=== PATIENT | male | born 1940 | race Hispanic/Latino ===

== ENCOUNTER → 2018-04-24 | Outpatient (CLI) | payer OTHER ==
[~2018-04-24] MED LIST: CLOP75TA14 PO; GLIM2TAB3 PO; LISI10TA7 PO; METF-444 PO; METO25TA6 PO; PRAV10TA39 PO; PRAV20TA4 PO
== END | disposition home or self-care (01) ==
LOC: SHCH 11:05
PROVIDERS: ATTEND Internal Medicine Cardiovascular Disease
DX: I65.23 Occlusion and stenosis of bilateral carotid arteries (principal); I25.810 Atherosclerosis of coronary artery bypass graft(s) without angina pectoris
CPT/HCPCS: 93880

== ENCOUNTER → 2018-05-15 | Outpatient (CLI) | payer OTHER | END | disposition home or self-care (01) | LOC: RAH 12:22 | PROVIDERS: ATTEND Family Medicine | DX: L03.115 Cellulitis of right lower limb (principal); M17.0 Bilateral primary osteoarthritis of knee | CPT/HCPCS: 93922 ==

== ENCOUNTER → 2018-05-16 | Outpatient (CLI) | payer OTHER ==
[~2018-05-16] MED LIST changes: +IOHEXOL-350 50ML VIAL IV ONE
== END | disposition home or self-care (01) ==
LOC: OIH 08:27
PROVIDERS: ATTEND Internal Medicine Cardiovascular Disease
DX: I65.23 Occlusion and stenosis of bilateral carotid arteries (principal); Z95.828 Presence of other vascular implants and grafts
CPT/HCPCS: 70498; Q9967

== ENCOUNTER 2019-01-18 15:10 | Emergency (ER) | payer OTHER ==
[~2019-01-18 15:10] MED LIST changes: -IOHEXOL-350 50ML VIAL IV ONE
[2019-01-18 16:00] LABS: BASOPHILS % (AUTO) 0.4 % (0.0-5.0); EOSINOPHILS % (AUTO) 1.3 % (0.0-8.0); HEMATOCRIT 36.6 % (42-54); LYMPHOCYTES % (AUTO) 18.6 % (21.0-51.0); MEAN CORPUSCULAR HEMOGLOBIN 32.2 pg (27.0-33.0); MEAN CORPUSCULAR VOLUME 94.6 fL (79-99); MONOCYTES % (AUTO) 6.4 % (3.0-13.0); NEUTROPHILS % (AUTO) 73.3 % (40.0-77.0); NUCLEATED RED BLOOD CELLS 0.1 % (0.0-0.19); PLATELET COUNT (AUTO) 246 K/uL (130-400); RED BLOOD CELL COUNT(AUTO) 3.87 MIL/uL (4.50-6.20); RED CELL DISTRIBUTION WIDTH 14.3 % (11.0-15.5); WHITE BLOOD COUNT (AUTO) 8.4 K/uL (4.8-10.8)
[2019-01-18 16:12] LABS: CREATININE 1.3 mg/dL (0.5-1.5); POTASSIUM 4.2 mmol/L (3.5-5.1)
[2019-01-18 16:14] LABS: INR 0.94 (0.85-1.15); PROTHROMBIN TIME 9.9 SEC (9.6-11.6)
[2019-01-18 16:16] LABS: BILIRUBIN,TOTAL 0.3 mg/dL (0.2-1.0)
== END 2019-01-18 16:51 | disposition home or self-care (01) ==
LOC: EDH 15:10
DX: K64.8 Other hemorrhoids (principal); K62.5 Hemorrhage of anus and rectum; I10 Essential (primary) hypertension; E11.9 Type 2 diabetes mellitus without complications; Z88.0 Allergy status to penicillin; Z88.6 Allergy status to analgesic agent; Z98.890 Other specified postprocedural states; Z87.891 Personal history of nicotine dependence
CPT/HCPCS: 36415; 80053; 83690; 85025; 85610; 85730

== ENCOUNTER 2019-02-06 05:28 | Day surgery (SDC) | payer OTHER ==
[~2019-02-06 05:28] MED LIST changes: +ASPI-555 PO; +CHOL200074 PO; +FEXO180T94 PO; +FOLI400T9 PO; -LISI10TA7 PO; +METH2.5T6 PO; +MULT-1203 PO
[2019-02-06] MEDS ORDERED: SODIUM CHLORIDE 0.9% 1000ML 1,000 ML IV ONE (05:47)
[2019-02-06 06:05] VITALS: BP 118/54
[2019-02-06] MEDS ORDERED: LIDOCAINE HCL-MPF 2% 5ML VIAL ONE (06:40)
[2019-02-06] MEDS ORDERED: PROPOFOL 10 MG/ML 20ML VIAL IV ONE (06:40)
[2019-02-06 06:51] VITALS: BP 115/62
[2019-02-06 06:56] VITALS: BP 127/63
[2019-02-06 07:01] VITALS: BP 119/55
[2019-02-06 07:06] VITALS: BP 141/75
[2019-02-06 07:15] VITALS: BP 130/67
== END 2019-02-06 07:28 | disposition home or self-care (01) ==
LOC: DAH 05:28 → ENDO 05:28
PROVIDERS: ATTEND Internal Medicine
DX: K63.5 Polyp of colon (principal); K57.30 Diverticulosis of large intestine without perforation or abscess without bleeding; K64.2 Third degree hemorrhoids; I25.10 Atherosclerotic heart disease of native coronary artery without angina pectoris; K62.5 Hemorrhage of anus and rectum; I50.9 Heart failure, unspecified; I11.0 Hypertensive heart disease with heart failure; E11.9 Type 2 diabetes mellitus without complications; E78.2 Mixed hyperlipidemia; Z79.84 Long term (current) use of oral hypoglycemic drugs; Z79.82 Long term (current) use of aspirin; Z79.899 Other long term (current) drug therapy; M19.90 Unspecified osteoarthritis, unspecified site; Z98.890 Other specified postprocedural states; Z95.1 Presence of aortocoronary bypass graft
CPT/HCPCS: 45380; 82948 ×2; 88305; A4606; J2704; J3490; J7030

== ENCOUNTER → 2019-04-17 | Outpatient (CLI) | payer OTHER ==
[~2019-04-17] MED LIST changes: -GLIM2TAB3 PO; +GLIM2TAB4 PO
== END | disposition home or self-care (01) ==
LOC: SHCH 09:27
PROVIDERS: ATTEND Internal Medicine Cardiovascular Disease
DX: I65.23 Occlusion and stenosis of bilateral carotid arteries (principal)
CPT/HCPCS: 93880

== ENCOUNTER → 2020-05-27 | Outpatient (CLI) | payer OTHER ==
[~2020-05-27] MED LIST changes: -ASPI-555 PO; +ASPI-556 PO; +GLIM2TAB30 PO; -GLIM2TAB4 PO
== END | disposition home or self-care (01) ==
LOC: SHCH 07:47
PROVIDERS: ATTEND Internal Medicine Cardiovascular Disease
DX: I10 Essential (primary) hypertension (principal)
CPT/HCPCS: 93306; 93356

== ENCOUNTER → 2020-06-04 | Outpatient (CLI) | payer OTHER | END | disposition home or self-care (01) | LOC: SHCH 14:49 | PROVIDERS: ATTEND Internal Medicine Cardiovascular Disease | DX: I70.293 Other atherosclerosis of native arteries of extremities, bilateral legs (principal) | CPT/HCPCS: 93925 ==

== ENCOUNTER → 2020-06-24 | Outpatient (CLI) | payer OTHER | END | disposition home or self-care (01) | LOC: RAH 14:48 | PROVIDERS: ATTEND Family Medicine | DX: R22.42 Localized swelling, mass and lump, left lower limb (principal) | CPT/HCPCS: 76882 ==

== ENCOUNTER 2021-04-28 11:15 | Inpatient (IN) | payer MEDICARE, OTHER ==
[~2021-04-28] VITALS: Ht 170.2 cm; Wt 87.4 kg
[2021-04-28 11:44] LABS: BASOPHILS % (AUTO) 0.7 % (0.0-5.0); HEMATOCRIT 33.3 % (42-54); LYMPHOCYTES % (AUTO) 8.1 % (21.0-51.0); MEAN CORPUSCULAR HEMOGLOBIN 31.4 pg (27.0-33.0); MEAN CORPUSCULAR VOLUME 95.1 fL (79-99); MONOCYTES % (AUTO) 8.9 % (3.0-13.0); NEUTROPHILS % (AUTO) 80.5 % (40.0-77.0); PLATELET COUNT (AUTO) 365 K/uL (130-400); RED CELL DISTRIBUTION WIDTH 12.8 % (11.0-15.5); WHITE BLOOD COUNT (AUTO) 8.9 K/uL (4.8-10.8)
[2021-04-28 11:59] LABS: CREATININE 1.4 mg/dL (0.5-1.5); POTASSIUM 4.6 mmol/L (3.5-5.1)
[2021-04-28 12:04] LABS: ALBUMIN 3.2 g/dL (3.5-5.0); BILIRUBIN,TOTAL 0.6 mg/dL (0.2-1.0); TOTAL PROTEIN, SERUM 7.8 g/dL (6.0-8.3)
[2021-04-28] MEDS ORDERED: IOHEXOL 350 MG/ML 100ML INFUS..BTL IV ONE (14:42)
[2021-04-28] MEDS ORDERED: GLUCAGON 1MG KIT 1 MG ML IM PRN (17:30)
[2021-04-28] MEDS ORDERED: HYDRALAZINE 20MG/ML VIAL IM PRN (17:30)
[2021-04-28] MEDS ORDERED: ACETAMINOPHEN 325 MG TAB PO PRN (17:30)
[2021-04-28] MEDS ORDERED: DEXTROSE 50%-WATER 50 ML DISP.SYRIN IV PRN (17:30)
[2021-04-28] MEDS ORDERED: ONDANSETRON 4MG INJ IVP PRN (17:30)
[2021-04-28] MEDS ORDERED: FUROSEMIDE 40MG VIAL IV ONE (17:30)
[2021-04-28] MEDS ORDERED: LORAZEPAM 2 MG/ML 1 ML VIAL IVP PRN (18:00)
[2021-04-28] MEDS: HEPARIN 5,000 UNIT VIAL SQ SCH (18:20)
[2021-04-28] MEDS: FAMOTIDINE 20MG TAB PO SCH (18:20)
[2021-04-28] MEDS: THIAMINE HCL 100 MG/ML 2ML VIAL IVP SCH (19:48)
[2021-04-28] MEDS ORDERED: 0.9%NACL 100ML 100 ML ONE (19:50)
[2021-04-28] MEDS: INSULIN HUMULIN R 100 UNIT/ML 3ML SQ SCH (21:20)
[2021-04-29] VITALS (10 sets, daily range): BP systolic 98–161; BP diastolic 60–88
[2021-04-29] MEDS: HEPARIN 5,000 UNIT VIAL SQ SCH ×2 (00:53→16:54)
[2021-04-29 05:39] LABS: HEMATOCRIT 31.2 % (42-54); MEAN CORPUSCULAR HEMOGLOBIN 31.8 pg (27.0-33.0); MEAN CORPUSCULAR HGB CONC 32.7 g/dL (32.0-36.0); MEAN CORPUSCULAR VOLUME 97.2 fL (79-99); RED BLOOD CELL COUNT(AUTO) 3.21 MIL/uL (4.50-6.20); RED CELL DISTRIBUTION WIDTH 12.8 % (11.0-15.5); WHITE BLOOD COUNT (AUTO) 6.3 K/uL (4.8-10.8)
[2021-04-29 05:56] LABS: ALBUMIN 2.8 g/dL (3.5-5.0); BILIRUBIN,DIRECT 0.1 mg/dL (0.0-0.3); BILIRUBIN,TOTAL 0.4 mg/dL (0.2-1.0); CREATININE 1.1 mg/dL (0.5-1.5); POTASSIUM 4.6 mmol/L (3.5-5.1)
[2021-04-29 05:57] LABS: HEMOGLOBIN A1C 7.2 % (4.0-6.0)
[2021-04-29] MEDS: INSULIN HUMULIN R 100 UNIT/ML 3ML SQ SCH ×4 (05:58→20:32)
[2021-04-29] MEDS ORDERED: ZOSYN 3.375GM +NS 50ML IV SCH (08:30)
[2021-04-29] MEDS: FAMOTIDINE 20MG TAB PO SCH (09:00)
[2021-04-29 09:02] LABS: INR 1.08 (0.85-1.15); PROTHROMBIN TIME 11.7 SEC (9.6-11.6)
[2021-04-29 09:03] LABS: PARTIAL THROMBOPLASTIN TIME 31.5 SEC (26.3-35.5)
[2021-04-29] MEDS: THIAMINE HCL 100 MG/ML 2ML VIAL IVP SCH (09:36)
[2021-04-29] MEDS: ZOSYN 3.375GM+NS 50ML 50 ML IV SCH ×3 (09:37→23:26)
[2021-04-29 18:12] LABS: SPECIMENTYPE,BODY FLUID PLEURAL
[2021-04-29 18:13] LABS: APPEARANCE BODY FLUID SLIGHTLY CLOUDY (CLEAR); BODY FLUID WBC 169 /cu. mm.; COLOR,BODY FLUID YELLOW (LT YELLOW); TOTAL VOLUME,BODY FLUID 2000 mL
[2021-04-29 18:14] LABS: BODY FLUID RBC 805 /cu. mm.
[2021-04-29 19:41] LABS: BF LYMPHOCYTE 5 %
[2021-04-30] VITALS (7 sets, daily range): BP systolic 122–158; BP diastolic 58–80
[2021-04-30 03:55] LABS: HEMATOCRIT 28.6 % (42-54); MEAN CORPUSCULAR HEMOGLOBIN 31.5 pg (27.0-33.0); MEAN CORPUSCULAR HGB CONC 32.9 g/dL (32.0-36.0); RED BLOOD CELL COUNT(AUTO) 2.98 MIL/uL (4.50-6.20); RED CELL DISTRIBUTION WIDTH 12.6 % (11.0-15.5); WHITE BLOOD COUNT (AUTO) 7.2 K/uL (4.8-10.8)
[2021-04-30 04:07] LABS: CREATININE 1.3 mg/dL (0.5-1.5); POTASSIUM 4.3 mmol/L (3.5-5.1)
[2021-04-30] MEDS: HEPARIN 5,000 UNIT VIAL SQ SCH (04:10)
[2021-04-30] MEDS: INSULIN HUMULIN R 100 UNIT/ML 3ML SQ SCH ×4 (06:13→20:17)
[2021-04-30] MEDS: FOLIC ACID 1 MG TABLET PO SCH (08:36)
[2021-04-30] MEDS: ZOSYN 3.375GM+NS 50ML 50 ML IV SCH ×2 (08:36→16:54)
[2021-04-30] MEDS: FAMOTIDINE 20MG TAB PO SCH (08:36)
[2021-04-30] MEDS: THIAMINE HCL 100 MG/ML 2ML VIAL IVP SCH (08:36)
[2021-04-30] MEDS ORDERED: LEVO750T46 PO (13:18)
[2021-04-30] MEDS ORDERED: FENTANYL CITRATE PF 50 MCG/1 ML 2ML VIAL ONE (14:10)
[2021-04-30] MEDS ORDERED: MIDAZOLAM HCL 1 MG/ML 2ML VIAL ONE (14:10)
[2021-04-30] MEDS ORDERED: METF-444 PO (15:36)
[2021-04-30] MEDS ORDERED: GLIM4TAB36 PO (15:36)
[2021-04-30] MEDS ORDERED: FOLI1 PO (15:36)
[2021-04-30] MEDS ORDERED: PANT40TA54 PO (15:36)
[2021-04-30] MEDS: METFORMIN HCL 500 MG TABLET PO SCH (17:00)
[2021-04-30] MEDS ORDERED: ATORVASTATIN 10 MG TABLET PO SCH (21:00)
[2021-05-01] MEDS: ZOSYN 3.375GM+NS 50ML 50 ML IV SCH ×3 (00:21→16:30)
[2021-05-01 03:29] VITALS: BP 131/69
[2021-05-01 03:58] LABS: HEMATOCRIT 29.7 % (42-54); MEAN CORPUSCULAR HEMOGLOBIN 31.1 pg (27.0-33.0); MEAN CORPUSCULAR VOLUME 94.3 fL (79-99); RED BLOOD CELL COUNT(AUTO) 3.15 MIL/uL (4.50-6.20); RED CELL DISTRIBUTION WIDTH 12.6 % (11.0-15.5); WHITE BLOOD COUNT (AUTO) 7.4 K/uL (4.8-10.8)
[2021-05-01 04:14] LABS: CREATININE 1.3 mg/dL (0.5-1.5); POTASSIUM 4.2 mmol/L (3.5-5.1)
[2021-05-01] MEDS: INSULIN HUMULIN R 100 UNIT/ML 3ML SQ SCH ×3 (06:30→16:30)
[2021-05-01] MEDS ORDERED: GLIMEPIRIDE 2 MG TABLET PO SCH (08:00)
[2021-05-01 08:25] VITALS: BP 147/77
[2021-05-01] MEDS ORDERED: CLOPIDOGREL 75MG TAB PO SCH (09:00)
[2021-05-01] MEDS ORDERED: FOLIC ACID 1 MG TABLET PO SCH (09:00)
[2021-05-01] MEDS ORDERED: ASPIRIN 81 MG EC TAB PO SCH (09:00)
[2021-05-01] MEDS ORDERED: METOPROLOL TARTRATE 25 MG TAB PO SCH (09:00)
[2021-05-01] MEDS: THIAMINE HCL 100 MG/ML 2ML VIAL IVP SCH (10:22)
[2021-05-01] MEDS: METFORMIN HCL 500 MG TABLET PO SCH ×2 (10:22→16:54)
[2021-05-01] MEDS: FAMOTIDINE 20MG TAB PO SCH (10:23)
[2021-05-01] MEDS: FOLIC ACID 1 MG TABLET PO SCH (10:24)
[2021-05-01 10:50] VITALS: BP 110/74
[2021-05-01 16:19] VITALS: BP 105/65
[2021-05-01] MEDS ORDERED: LEVO750T46 PO (16:21)
== END 2021-05-01 18:25 | disposition home or self-care (01) | DRG 435 ==
LOC: EDH 11:15 → EDHIP 17:11 → 4BH 04-29 00:58
PROVIDERS: ADMIT Internal Medicine Critical Care Medicine; ATTEND Internal Medicine Critical Care Medicine
PROC: 0W993ZZ Drainage of Right Pleural Cavity, Percutaneous Approach (ICD-10-PCS; principal; 2021-04-29)
PROC: 0FB13ZX Excision of Right Lobe Liver, Percutaneous Approach, Diagnostic (ICD-10-PCS; 2021-05-01)
DX: C78.7 Secondary malignant neoplasm of liver and intrahepatic bile duct (principal); I50.33 Acute on chronic diastolic (congestive) heart failure; J98.11 Atelectasis; J91.0 Malignant pleural effusion; I25.10 Atherosclerotic heart disease of native coronary artery without angina pectoris; E11.9 Type 2 diabetes mellitus without complications; G47.33 Obstructive sleep apnea (adult) (pediatric); K29.70 Gastritis, unspecified, without bleeding; L40.9 Psoriasis, unspecified; S30.1XXA Contusion of abdominal wall, initial encounter; Z20.822 Contact with and (suspected) exposure to COVID-19; E78.00 Pure hypercholesterolemia, unspecified; Y93.89 Activity, other specified; Y92.89 Other specified places as the place of occurrence of the external cause; Y99.8 Other external cause status; Z79.82 Long term (current) use of aspirin; Z79.84 Long term (current) use of oral hypoglycemic drugs; Z87.891 Personal history of nicotine dependence; Z95.1 Presence of aortocoronary bypass graft; Z88.5 Allergy status to narcotic agent; Z88.0 Allergy status to penicillin; Z88.8 Allergy status to other drugs, medicaments and biological substances; I11.0 Hypertensive heart disease with heart failure
CPT/HCPCS: 32555; 36415; 47000; 71045; 71260; 74177; 78582; 80048; 80053; 80076; 82378; 82945; 82948; 83036; 83615; 83690; 83880; 83986; 84145; 84157; 84443; 85025; 85027; 85378; 85610; 85730; 87071; 87116; 87205; 87206; 87635; 89051; 93005; 93306; 94760; A9540; A9558; C1729; G0378; J1644; J1815; J1940; J2250; J2543; J3010; J3411; Q9967

== ENCOUNTER 2021-05-14 11:51 | Observation (INO) | payer MEDICARE ==
[~2021-05-14] VITALS: Ht 167.6 cm; Wt 90.4 kg
[~2021-05-14 11:51] MED LIST changes: -CHOL200074 PO; -FEXO180T94 PO; +FOLI1 PO; -FOLI400T9 PO; -GLIM2TAB30 PO; +GLIM4TAB36 PO; +LEVO750T46 PO; -METH2.5T6 PO; -MULT-1203 PO; +PANT40TA54 PO; -PRAV10TA39 PO
[2021-05-14 12:36] LABS: BASOPHILS % (AUTO) 0.6 % (0.0-5.0); HEMATOCRIT 29.9 % (42-54); LYMPHOCYTES % (AUTO) 9.4 % (21.0-51.0); MEAN CORPUSCULAR HEMOGLOBIN 30.9 pg (27.0-33.0); MEAN CORPUSCULAR HGB CONC 32.8 g/dL (32.0-36.0); MEAN CORPUSCULAR VOLUME 94.3 fL (79-99); MONOCYTES % (AUTO) 8.2 % (3.0-13.0); NEUTROPHILS % (AUTO) 78.9 % (40.0-77.0); PLATELET COUNT (AUTO) 328 K/uL (130-400); RED BLOOD CELL COUNT(AUTO) 3.17 MIL/uL (4.50-6.20); RED CELL DISTRIBUTION WIDTH 13.2 % (11.0-15.5); WHITE BLOOD COUNT (AUTO) 6.6 K/uL (4.8-10.8)
[2021-05-14 12:55] LABS: CREATININE 1.2 mg/dL (0.5-1.5); POTASSIUM 4.4 mmol/L (3.5-5.1)
[2021-05-14 13:06] LABS: BILIRUBIN,TOTAL 0.4 mg/dL (0.2-1.0); TOTAL PROTEIN, SERUM 7.3 g/dL (6.0-8.3)
[2021-05-14 13:12] LABS: B-TYPE NATRIURETIC PEPTIDE 195 pg/mL (0-100)
[2021-05-14] MEDS ORDERED: METOPROLOL TARTRATE 25 MG TAB PO SCH (15:00)
[2021-05-14 15:38] LABS: INR 1.09 (0.85-1.15); PROTHROMBIN TIME 11.8 SEC (9.6-11.6)
[2021-05-14 17:06] VITALS: BP 120/82
[2021-05-14] MEDS: METFORMIN HCL 500 MG TABLET PO SCH (17:35)
[2021-05-14 19:06] LABS: APPEARANCE BODY FLUID CLOUDY (CLEAR); COLOR,BODY FLUID ORANGE (LT YELLOW); SPECIMENTYPE,BODY FLUID PLEURAL; TOTAL VOLUME,BODY FLUID 1500 mL
[2021-05-14 19:07] LABS: BODY FLUID RBC 12150 /cu. mm.; BODY FLUID WBC 43 /cu. mm.
[2021-05-14 19:52] VITALS: BP 129/76
[2021-05-14 19:58] LABS: BF LYMPHOCYTE 3 %; BF MONOCYTE 1 %
[2021-05-14] MEDS: ATORVASTATIN 10 MG TABLET PO SCH (21:23)
[2021-05-14 22:48] VITALS: BP 136/67
[2021-05-15 03:26] VITALS: BP 130/67
[2021-05-15 03:58] LABS: BASOPHILS % (AUTO) 0.5 % (0.0-5.0); EOSINOPHILS % (AUTO) 3.4 % (0.0-8.0); HEMATOCRIT 28.5 % (42-54); LYMPHOCYTES % (AUTO) 12.8 % (21.0-51.0); MEAN CORPUSCULAR HEMOGLOBIN 30.9 pg (27.0-33.0); MEAN CORPUSCULAR HGB CONC 32.6 g/dL (32.0-36.0); MEAN CORPUSCULAR VOLUME 94.7 fL (79-99); MONOCYTES % (AUTO) 12.9 % (3.0-13.0); NEUTROPHILS % (AUTO) 69.6 % (40.0-77.0); PLATELET COUNT (AUTO) 287 K/uL (130-400); RED BLOOD CELL COUNT(AUTO) 3.01 MIL/uL (4.50-6.20); RED CELL DISTRIBUTION WIDTH 13.2 % (11.0-15.5); WHITE BLOOD COUNT (AUTO) 6.3 K/uL (4.8-10.8)
[2021-05-15 04:27] LABS: B-TYPE NATRIURETIC PEPTIDE 188 pg/mL (0-100)
[2021-05-15 08:09] VITALS: BP 143/71
[2021-05-15 08:47] LABS: TOTAL PROTEIN, SERUM 6.6 g/dL (6.0-8.3)
[2021-05-15] MEDS ORDERED: ASPIRIN 81MG CHEW TAB PO SCH (09:00)
[2021-05-15] MEDS ORDERED: CLOPIDOGREL 75MG TAB PO SCH (09:00)
[2021-05-15] MEDS: ASPIRIN 81 MG EC TAB PO SCH (10:05)
[2021-05-15] MEDS: FOLIC ACID 1 MG TABLET PO SCH (10:05)
[2021-05-15] MEDS: METFORMIN HCL 500 MG TABLET PO SCH ×2 (10:05→19:56)
[2021-05-15] MEDS: METOPROLOL TARTRATE 25 MG TAB PO SCH (10:05)
[2021-05-15] MEDS: PANTOPRAZOLE 40 MG TAB DR PO SCH (10:05)
[2021-05-15] MEDS: GLIMEPIRIDE 2 MG TABLET PO SCH (10:06)
[2021-05-15] MEDS: CLOPIDOGREL 75MG TAB PO SCH (10:06)
[2021-05-15 10:52] VITALS: BP 138/66
[2021-05-15 16:14] VITALS: BP 117/63
[2021-05-15 19:42] VITALS: BP 132/58
[2021-05-15] MEDS: ATORVASTATIN 10 MG TABLET PO SCH (19:55)
[2021-05-15 23:47] VITALS: BP 153/80
[2021-05-16 03:30] VITALS: BP 132/64
[2021-05-16 07:52] VITALS: BP 136/68
[2021-05-16] MEDS: GLIMEPIRIDE 2 MG TABLET PO SCH (08:00)
[2021-05-16] MEDS: METFORMIN HCL 500 MG TABLET PO SCH (08:00)
[2021-05-16] MEDS: ENOXAPARIN SODIUM 40 MG/0.4 ML SYRINGE SQ SCH ×2 (09:00→09:08)
[2021-05-16] MEDS: METOPROLOL TARTRATE 25 MG TAB PO SCH (09:08)
[2021-05-16] MEDS: ASPIRIN 81 MG EC TAB PO SCH (09:09)
[2021-05-16] MEDS: CLOPIDOGREL 75MG TAB PO SCH (09:09)
[2021-05-16] MEDS: FOLIC ACID 1 MG TABLET PO SCH (09:09)
[2021-05-16] MEDS: PANTOPRAZOLE 40 MG TAB DR PO SCH (09:09)
[2021-05-16 11:22] VITALS: BP 95/52
[2021-05-16 16:13] VITALS: BP 117/69
== END 2021-05-16 18:00 | disposition home or self-care (01) ==
LOC: EDH 11:51 → EDHIP 11:52 → INTOOBSV 11:52 → 4AH 16:06
PROVIDERS: ADMIT Internal Medicine Critical Care Medicine; ATTEND Internal Medicine Critical Care Medicine
DX: J96.01 Acute respiratory failure with hypoxia (principal); J90 Pleural effusion, not elsewhere classified; I11.0 Hypertensive heart disease with heart failure; I50.9 Heart failure, unspecified; C22.8 Malignant neoplasm of liver, primary, unspecified as to type; I25.10 Atherosclerotic heart disease of native coronary artery without angina pectoris; E11.9 Type 2 diabetes mellitus without complications; G47.33 Obstructive sleep apnea (adult) (pediatric); K29.70 Gastritis, unspecified, without bleeding; L40.9 Psoriasis, unspecified; E78.5 Hyperlipidemia, unspecified; Z87.891 Personal history of nicotine dependence; Z79.02 Long term (current) use of antithrombotics/antiplatelets; Z79.82 Long term (current) use of aspirin; Z79.899 Other long term (current) drug therapy; Z95.1 Presence of aortocoronary bypass graft; Z98.890 Other specified postprocedural states; Z79.84 Long term (current) use of oral hypoglycemic drugs
CPT/HCPCS: 32555; 36415 ×2; 71045 ×2; 71046; 80053; 82550; 82945; 82948 ×8; 83615 ×2; 83874; 83880 ×2; 83986; 84155; 84157; 84484; 85025 ×2; 85610; 87071; 87101; 87116; 87205; 87206 ×2; 89051; 97116; 97161; C1729; G0378 ×3; G8978; G8979; G8980; G8981; G8982; G8983; J1650

== ENCOUNTER 2021-05-29 14:20 | Inpatient (IN) | payer MEDICARE ==
[~2021-05-29] VITALS: Ht 172.7 cm; Wt 81.6 kg
[~2021-05-29 14:20] MED LIST changes: -LEVO750T46 PO
[2021-05-29 16:46] LABS: HEMATOCRIT 30.2 % (42-54); MEAN CORPUSCULAR HEMOGLOBIN 30.2 pg (27.0-33.0); MEAN CORPUSCULAR HGB CONC 32.8 g/dL (32.0-36.0); MEAN CORPUSCULAR VOLUME 92.1 fL (79-99); RED BLOOD CELL COUNT(AUTO) 3.28 MIL/uL (4.50-6.20); RED CELL DISTRIBUTION WIDTH 13.7 % (11.0-15.5); WHITE BLOOD COUNT (AUTO) 7.1 K/uL (4.8-10.8)
[2021-05-29 17:03] LABS: CREATININE 1.3 mg/dL (0.5-1.5); POTASSIUM 4.3 mmol/L (3.5-5.1)
[2021-05-29 17:07] LABS: ALBUMIN 2.9 g/dL (3.5-5.0); BILIRUBIN,TOTAL 0.4 mg/dL (0.2-1.0); TOTAL PROTEIN, SERUM 7.5 g/dL (6.0-8.3)
[2021-05-29] MEDS ORDERED: ETOMIDATE 20MG VIAL ONE (17:07)
[2021-05-29] MEDS ORDERED: LORAZEPAM 2 MG/ML 1 ML VIAL ONE (17:08)
[2021-05-29] MEDS ORDERED: LIDOCAINE HCL 1% 10 ML VIAL ONE ×2 (17:17→17:36)
[2021-05-29] MEDS: LIDOCAINE HCL 1% 20 ML VIAL INJ SCH ×2 (17:35→19:46)
[2021-05-29] MEDS: ETOMIDATE 20MG VIAL IVP SCH ×2 (17:40→19:46)
[2021-05-29 19:17] LABS: APPEARANCE,URINE Cloudy (CLEAR); BILIRUBIN,URINE Negative (NEGATIVE); COLOR,URINE Dark Yellow (YELLOW); GLUCOSE, URINE (UA) Negative (NEGATIVE); KETONES,URINE Trace mg/dL (NEGATIVE); LEUKOCYTE ESTERASE ,URINE Trace (NEGATIVE); NITRATE,URINE Negative (NEGATIVE); OCCULT BLOOD,URINE Negative (NEGATIVE); PROTEIN,URINE Trace mg/dL (NEGATIVE)
[2021-05-29] MEDS ORDERED: LORAZEPAM 2 MG/ML 1 ML VIAL IVP ONE (19:30)
[2021-05-29 19:37] LABS: BACTERIA,URINE Few /HPF (None Seen); MUCUS,URINE Moderate LPF (None Seen); SQUAMOUS EPITHELIAL CELL,UR Few /HPF (0-2)
[2021-05-29] MEDS ORDERED: NITROGLYCERIN 0.4 MG SL TAB SL PRN (20:30)
[2021-05-29] MEDS ORDERED: GUAIFENESIN-DM 200/20 MG 10 ML PO PRN (20:30)
[2021-05-29] MEDS ORDERED: ZOLPIDEM TARTRATE 5 MG TAB PO PRN (20:30)
[2021-05-29] MEDS ORDERED: LACTULOSE 20 GM/30 ML UDCUP PO PRN (20:30)
[2021-05-29] MEDS ORDERED: MAG/ALUM/SIMETH 30 ML UDCUP PO PRN (20:30)
[2021-05-29] MEDS ORDERED: IPRATROPIUM/ALBUTEROL SULFATE 3 ML SOLUTION IH PRN (20:30)
[2021-05-29 23:00] VITALS: BP 113/62
[2021-05-29 23:48] VITALS: BP 121/67
[2021-05-30 03:41] VITALS: BP 126/59
[2021-05-30 07:16] LABS: BASOPHILS % (AUTO) 0.2 % (0.0-5.0); EOSINOPHILS % (AUTO) 2.8 % (0.0-8.0); HEMATOCRIT 30.5 % (42-54); LYMPHOCYTES % (AUTO) 11.7 % (21.0-51.0); MEAN CORPUSCULAR HEMOGLOBIN 29.8 pg (27.0-33.0); MEAN CORPUSCULAR HGB CONC 31.1 g/dL (32.0-36.0); MEAN CORPUSCULAR VOLUME 95.6 fL (79-99); MONOCYTES % (AUTO) 9.2 % (3.0-13.0); NEUTROPHILS % (AUTO) 74.9 % (40.0-77.0); PLATELET COUNT (AUTO) 278 K/uL (130-400); RED BLOOD CELL COUNT(AUTO) 3.19 MIL/uL (4.50-6.20); RED CELL DISTRIBUTION WIDTH 13.7 % (11.0-15.5); WHITE BLOOD COUNT (AUTO) 6.1 K/uL (4.8-10.8)
[2021-05-30 07:23] VITALS: BP 100/47
[2021-05-30 07:26] LABS: POTASSIUM 4.1 mmol/L (3.5-5.1)
[2021-05-30 07:30] LABS: ABG BASE EXCESS 3.4 mmol/L (-2.0-3.0); ABG HCO3 28.5 mmol/L (21.0-28.0); ABG OXYGEN SATURATION 97.6 % (95.0-99.0); ABG PCO2 45 mmHg (35-48)
[2021-05-30] MEDS: ACETAMINOPHEN 325 MG TAB PO PRN ×2 (07:52)
[2021-05-30] MEDS ORDERED: FAMOTIDINE 20MG VIAL IV SCH (09:00)
[2021-05-30] MEDS ORDERED: METF-444 PO (09:43)
[2021-05-30] MEDS ORDERED: GLIM4TAB36 PO (09:43)
[2021-05-30] MEDS ORDERED: CLOP75TA32 PO (09:43)
[2021-05-30] MEDS ORDERED: ASPI-1443 PO (09:43)
[2021-05-30] MEDS ORDERED: PANT40TA54 PO (09:43)
[2021-05-30] MEDS ORDERED: METO25TA6 PO (09:43)
[2021-05-30] MEDS ORDERED: PRAV20TA4 PO (09:43)
[2021-05-30 11:20] VITALS: BP 132/71
[2021-05-30] MEDS: FOLIC ACID 1 MG TABLET PO SCH (13:05)
[2021-05-30 15:33] VITALS: BP 116/58
[2021-05-30 19:27] VITALS: BP 116/74
[2021-05-30 23:53] VITALS: BP 128/69
[2021-05-31 03:39] VITALS: BP 121/67
[2021-05-31 03:53] LABS: BASOPHILS % (AUTO) 0.1 % (0.0-5.0); EOSINOPHILS % (AUTO) 2.2 % (0.0-8.0); HEMATOCRIT 28.3 % (42-54); LYMPHOCYTES % (AUTO) 12.1 % (21.0-51.0); MEAN CORPUSCULAR HEMOGLOBIN 29.6 pg (27.0-33.0); MEAN CORPUSCULAR HGB CONC 31.8 g/dL (32.0-36.0); MEAN CORPUSCULAR VOLUME 93.1 fL (79-99); MONOCYTES % (AUTO) 9.3 % (3.0-13.0); NEUTROPHILS % (AUTO) 75.1 % (40.0-77.0); PLATELET COUNT (AUTO) 269 K/uL (130-400); RED BLOOD CELL COUNT(AUTO) 3.04 MIL/uL (4.50-6.20); RED CELL DISTRIBUTION WIDTH 13.6 % (11.0-15.5); WHITE BLOOD COUNT (AUTO) 6.8 K/uL (4.8-10.8)
[2021-05-31 04:09] LABS: ALBUMIN 2.6 g/dL (3.5-5.0); BILIRUBIN,TOTAL 0.4 mg/dL (0.2-1.0); POTASSIUM 4.3 mmol/L (3.5-5.1); TOTAL PROTEIN, SERUM 6.5 g/dL (6.0-8.3)
[2021-05-31 04:15] LABS: CREATININE 1.2 mg/dL (0.5-1.5)
[2021-05-31 08:58] VITALS: BP 137/76
[2021-05-31] MEDS: FOLIC ACID 1 MG TABLET PO SCH (09:13)
[2021-05-31] MEDS: FAMOTIDINE 20MG TAB PO SCH (09:13)
[2021-05-31 12:40] VITALS: BP 133/87
[2021-05-31 16:54] VITALS: BP 130/64
[2021-05-31 19:49] VITALS: BP 109/59
[2021-05-31] MEDS: ACETAMINOPHEN 325 MG TAB PO PRN (22:54)
[2021-06-01 00:14] VITALS: BP 121/66
[2021-06-01 04:06] VITALS: BP 115/62
[2021-06-01 04:31] LABS: BASOPHILS % (AUTO) 0.3 % (0.0-5.0); EOSINOPHILS % (AUTO) 2.6 % (0.0-8.0); HEMATOCRIT 29.3 % (42-54); MEAN CORPUSCULAR HGB CONC 32.4 g/dL (32.0-36.0); MEAN CORPUSCULAR VOLUME 92.4 fL (79-99); MONOCYTES % (AUTO) 8.5 % (3.0-13.0); NEUTROPHILS % (AUTO) 74.5 % (40.0-77.0); PLATELET COUNT (AUTO) 297 K/uL (130-400); RED BLOOD CELL COUNT(AUTO) 3.17 MIL/uL (4.50-6.20); RED CELL DISTRIBUTION WIDTH 13.5 % (11.0-15.5); WHITE BLOOD COUNT (AUTO) 6.5 K/uL (4.8-10.8)
[2021-06-01 04:36] LABS: ALBUMIN 2.5 g/dL (3.5-5.0); BILIRUBIN,TOTAL 0.4 mg/dL (0.2-1.0); CREATININE 1.1 mg/dL (0.5-1.5); POTASSIUM 4.6 mmol/L (3.5-5.1); TOTAL PROTEIN, SERUM 6.5 g/dL (6.0-8.3)
[2021-06-01 08:30] VITALS: BP 117/70
[2021-06-01] MEDS: FOLIC ACID 1 MG TABLET PO SCH (09:13)
[2021-06-01] MEDS: FAMOTIDINE 20MG TAB PO SCH (09:13)
[2021-06-01 12:50] VITALS: BP 132/62
[2021-06-01 16:30] VITALS: BP 113/62
[2021-06-01] MEDS: METOPROLOL TARTRATE 25 MG TAB PO SCH (19:36)
[2021-06-01] MEDS: ATORVASTATIN 10 MG TABLET PO SCH (19:36)
[2021-06-01 20:00] VITALS: BP 124/69
[2021-06-02] VITALS (7 sets, daily range): BP systolic 105–127; BP diastolic 55–69
[2021-06-02] MEDS: ASPIRIN 81 MG EC TAB PO SCH (08:10)
[2021-06-02] MEDS: PANTOPRAZOLE 40 MG TAB DR PO SCH (08:10)
[2021-06-02] MEDS: CLOPIDOGREL 75MG TAB PO SCH (08:10)
[2021-06-02] MEDS: METOPROLOL TARTRATE 25 MG TAB PO SCH ×2 (08:11→20:11)
[2021-06-02] MEDS: FOLIC ACID 1 MG TABLET PO SCH (08:11)
[2021-06-02] MEDS: FAMOTIDINE 20MG TAB PO SCH (08:15)
[2021-06-02] MEDS: ONDANSETRON 4MG INJ IV PRN (11:29)
[2021-06-02] MEDS ORDERED: IOHEXOL-350 75 ML VIAL IV ONE (14:22)
[2021-06-02] MEDS: ATORVASTATIN 10 MG TABLET PO SCH (20:11)
[2021-06-02] MEDS: ACETAMINOPHEN 325 MG TAB PO PRN (20:13)
[2021-06-03 04:08] VITALS: BP 140/63
[2021-06-03] MEDS: ASPIRIN 81 MG EC TAB PO SCH (07:54)
[2021-06-03] MEDS: METOPROLOL TARTRATE 25 MG TAB PO SCH ×2 (07:54→19:50)
[2021-06-03] MEDS: CLOPIDOGREL 75MG TAB PO SCH (07:54)
[2021-06-03] MEDS: FOLIC ACID 1 MG TABLET PO SCH (07:54)
[2021-06-03] MEDS: PANTOPRAZOLE 40 MG TAB DR PO SCH (07:54)
[2021-06-03 08:04] VITALS: BP 138/64
[2021-06-03 12:03] VITALS: BP 138/72
[2021-06-03 16:18] VITALS: BP 124/61
[2021-06-03] MEDS: ATORVASTATIN 10 MG TABLET PO SCH (19:50)
[2021-06-03 20:00] VITALS: BP 124/43
[2021-06-04] VITALS (7 sets, daily range): BP systolic 108–136; BP diastolic 56–74
[2021-06-04 05:27] LABS: HEMATOCRIT 31.1 % (42-54); MEAN CORPUSCULAR HGB CONC 32.5 g/dL (32.0-36.0); MEAN CORPUSCULAR VOLUME 92.3 fL (79-99); RED BLOOD CELL COUNT(AUTO) 3.37 MIL/uL (4.50-6.20); RED CELL DISTRIBUTION WIDTH 13.6 % (11.0-15.5); WHITE BLOOD COUNT (AUTO) 8.8 K/uL (4.8-10.8)
[2021-06-04 06:00] LABS: ALBUMIN 2.5 g/dL (3.5-5.0); BILIRUBIN,TOTAL 0.5 mg/dL (0.2-1.0); CREATININE 1.3 mg/dL (0.5-1.5); POTASSIUM 4.3 mmol/L (3.5-5.1); TOTAL PROTEIN, SERUM 6.8 g/dL (6.0-8.3)
[2021-06-04] MEDS ORDERED: DEXTROSE 50%-WATER 50 ML DISP.SYRIN IV PRN (07:30)
[2021-06-04] MEDS ORDERED: INSULIN HUMULIN R 100 UNIT/ML 3ML SQ SCH (07:30)
[2021-06-04] MEDS ORDERED: GLUCAGON 1MG KIT 1 MG ML IM PRN (07:30)
[2021-06-04] MEDS: PANTOPRAZOLE 40 MG TAB DR PO SCH (08:13)
[2021-06-04] MEDS: ASPIRIN 81 MG EC TAB PO SCH (08:13)
[2021-06-04] MEDS: FOLIC ACID 1 MG TABLET PO SCH (08:13)
[2021-06-04] MEDS: CLOPIDOGREL 75MG TAB PO SCH (08:13)
[2021-06-04] MEDS: METOPROLOL TARTRATE 25 MG TAB PO SCH ×2 (08:13→20:22)
[2021-06-04] MEDS: ONDANSETRON 4MG INJ IV PRN (11:48)
[2021-06-04] MEDS: INSULIN HUMULIN R 100 UNIT/ML 3ML SQ SCH ×3 (14:26→20:22)
[2021-06-04] MEDS: ACETAMINOPHEN 325 MG TAB PO PRN (20:21)
[2021-06-04] MEDS: ATORVASTATIN 10 MG TABLET PO SCH (20:22)
[2021-06-05 04:00] VITALS: BP 127/63
[2021-06-05 05:15] LABS: HEMATOCRIT 30.3 % (42-54); MEAN CORPUSCULAR HEMOGLOBIN 29.4 pg (27.0-33.0); MEAN CORPUSCULAR HGB CONC 32.3 g/dL (32.0-36.0); RED BLOOD CELL COUNT(AUTO) 3.33 MIL/uL (4.50-6.20); RED CELL DISTRIBUTION WIDTH 13.6 % (11.0-15.5); WHITE BLOOD COUNT (AUTO) 7.8 K/uL (4.8-10.8)
[2021-06-05 05:31] LABS: CREATININE 1.2 mg/dL (0.5-1.5); POTASSIUM 4.2 mmol/L (3.5-5.1)
[2021-06-05] MEDS: INSULIN HUMULIN R 100 UNIT/ML 3ML SQ SCH ×4 (06:16→19:27)
[2021-06-05 07:49] VITALS: BP 132/68
[2021-06-05] MEDS: ASPIRIN 81 MG EC TAB PO SCH (09:08)
[2021-06-05] MEDS: FOLIC ACID 1 MG TABLET PO SCH (09:09)
[2021-06-05] MEDS: PANTOPRAZOLE 40 MG TAB DR PO SCH (09:09)
[2021-06-05] MEDS: CLOPIDOGREL 75MG TAB PO SCH (09:09)
[2021-06-05] MEDS: METOPROLOL TARTRATE 25 MG TAB PO SCH ×2 (09:10→20:27)
[2021-06-05] MEDS ORDERED: MAGNESIUM HYDROXIDE 30 ML/UDCUP PO PRN (11:30)
[2021-06-05] MEDS ORDERED: SENNOSIDES 8.6 MG TABLET PO SCH (11:30)
[2021-06-05] MEDS ORDERED: SENNOSIDES 8.6 MG TABLET PO PRN (11:30)
[2021-06-05 11:36] VITALS: BP 111/51
[2021-06-05] MEDS: ACETAMINOPHEN 325 MG TAB PO PRN ×2 (14:50→23:28)
[2021-06-05 15:49] VITALS: BP 123/64
[2021-06-05 20:22] VITALS: BP 118/69
[2021-06-05] MEDS: ATORVASTATIN 10 MG TABLET PO SCH (20:27)
[2021-06-05 23:49] VITALS: BP 111/63
[2021-06-06 04:08] VITALS: BP 115/63
[2021-06-06 05:15] LABS: MEAN CORPUSCULAR HEMOGLOBIN 29.7 pg (27.0-33.0); MEAN CORPUSCULAR HGB CONC 32.3 g/dL (32.0-36.0); MEAN CORPUSCULAR VOLUME 91.7 fL (79-99); RED BLOOD CELL COUNT(AUTO) 3.27 MIL/uL (4.50-6.20); RED CELL DISTRIBUTION WIDTH 13.7 % (11.0-15.5); WHITE BLOOD COUNT (AUTO) 9.5 K/uL (4.8-10.8)
[2021-06-06] MEDS: INSULIN HUMULIN R 100 UNIT/ML 3ML SQ SCH ×4 (05:15→21:14)
[2021-06-06 05:33] LABS: CREATININE 1.3 mg/dL (0.5-1.5); POTASSIUM 4.6 mmol/L (3.5-5.1)
[2021-06-06 08:00] VITALS: BP 109/61
[2021-06-06] MEDS: METOPROLOL TARTRATE 25 MG TAB PO SCH ×2 (08:28→21:12)
[2021-06-06] MEDS: FOLIC ACID 1 MG TABLET PO SCH (08:28)
[2021-06-06] MEDS: CLOPIDOGREL 75MG TAB PO SCH (08:29)
[2021-06-06] MEDS: PANTOPRAZOLE 40 MG TAB DR PO SCH (08:29)
[2021-06-06] MEDS: ASPIRIN 81 MG EC TAB PO SCH (08:30)
[2021-06-06 12:00] VITALS: BP 134/69
[2021-06-06] MEDS ORDERED: MAGNESIUM CITRATE 296 ML SOLUTION PO ONE (13:30)
[2021-06-06 16:00] VITALS: BP 116/62
[2021-06-06] MEDS: ACETAMINOPHEN 325 MG TAB PO PRN ×2 (16:13→23:28)
[2021-06-06 19:35] VITALS: BP 126/72
[2021-06-06] MEDS: ATORVASTATIN 10 MG TABLET PO SCH (21:12)
[2021-06-06 23:55] VITALS: BP 110/61
[2021-06-07 04:08] VITALS: BP 123/63
[2021-06-07 04:49] LABS: BASOPHILS % (AUTO) 0.5 % (0.0-5.0); EOSINOPHILS % (AUTO) 8.2 % (0.0-8.0); LYMPHOCYTES % (AUTO) 10.5 % (21.0-51.0); MEAN CORPUSCULAR HEMOGLOBIN 29.1 pg (27.0-33.0); MEAN CORPUSCULAR HGB CONC 31.9 g/dL (32.0-36.0); MEAN CORPUSCULAR VOLUME 91.2 fL (79-99); MONOCYTES % (AUTO) 9.4 % (3.0-13.0); NEUTROPHILS % (AUTO) 69.6 % (40.0-77.0); PLATELET COUNT (AUTO) 349 K/uL (130-400); RED BLOOD CELL COUNT(AUTO) 3.51 MIL/uL (4.50-6.20); RED CELL DISTRIBUTION WIDTH 13.8 % (11.0-15.5); WHITE BLOOD COUNT (AUTO) 9.3 K/uL (4.8-10.8)
[2021-06-07 05:01] LABS: INR 1.04 (0.85-1.15); PROTHROMBIN TIME 11.3 SEC (9.6-11.6)
[2021-06-07 05:06] LABS: CREATININE 1.2 mg/dL (0.5-1.5); POTASSIUM 4.6 mmol/L (3.5-5.1)
[2021-06-07] MEDS: INSULIN HUMULIN R 100 UNIT/ML 3ML SQ SCH ×3 (07:30→16:30)
[2021-06-07 08:16] VITALS: BP 126/67
[2021-06-07] MEDS: CLOPIDOGREL 75MG TAB PO SCH (09:00)
[2021-06-07] MEDS: ASPIRIN 81 MG EC TAB PO SCH (09:12)
[2021-06-07] MEDS: METOPROLOL TARTRATE 25 MG TAB PO SCH (09:12)
[2021-06-07] MEDS: FOLIC ACID 1 MG TABLET PO SCH (09:13)
[2021-06-07] MEDS: PANTOPRAZOLE 40 MG TAB DR PO SCH (09:13)
[2021-06-07 11:50] VITALS: BP 115/59
[2021-06-07 16:44] VITALS: BP 132/73
== END 2021-06-07 20:00 | disposition short-term general hospital (02) | DRG 199 ==
LOC: EDH 14:20 → OBSVTOIN 18:52 → INTOOBSV 18:52 → EDHIP 18:52 → 4DH 22:24
PROVIDERS: ADMIT Internal Medicine Critical Care Medicine; ATTEND Internal Medicine Critical Care Medicine
PROC: 0W9930Z Drainage of Right Pleural Cavity with Drainage Device, Percutaneous Approach (ICD-10-PCS; principal; 2021-05-29)
DX: J93.9 Pneumothorax, unspecified (principal); J86.0 Pyothorax with fistula; C34.90 Malignant neoplasm of unspecified part of unspecified bronchus or lung; C78.7 Secondary malignant neoplasm of liver and intrahepatic bile duct; C49.A0 Gastrointestinal stromal tumor, unspecified site; J91.0 Malignant pleural effusion; J98.2 Interstitial emphysema; J93.82 Other air leak; E11.9 Type 2 diabetes mellitus without complications; Z20.822 Contact with and (suspected) exposure to COVID-19; E78.00 Pure hypercholesterolemia, unspecified; E78.5 Hyperlipidemia, unspecified; G47.33 Obstructive sleep apnea (adult) (pediatric); I10 Essential (primary) hypertension; I25.10 Atherosclerotic heart disease of native coronary artery without angina pectoris; K29.70 Gastritis, unspecified, without bleeding; K59.00 Constipation, unspecified; L40.9 Psoriasis, unspecified; Z96.652 Presence of left artificial knee joint; Z79.02 Long term (current) use of antithrombotics/antiplatelets; Z79.82 Long term (current) use of aspirin; Z79.84 Long term (current) use of oral hypoglycemic drugs; Z79.899 Other long term (current) drug therapy; Z87.891 Personal history of nicotine dependence; Z95.1 Presence of aortocoronary bypass graft; Z88.0 Allergy status to penicillin; Z88.5 Allergy status to narcotic agent; Z88.8 Allergy status to other drugs, medicaments and biological substances
CPT/HCPCS: 36415; 36600; 71045; 71046; 71260; 80048; 80053; 81001; 82803; 82948; 83880; 85025; 85027; 85610; 85730; 87635; 93005; 94640; C1894; G0378; J1815; J2060; J2405; J3490; Q9967